=== PATIENT | female | born 1965 | race Two or more races ===

== ENCOUNTER 2018-04-14 10:52 | Emergency (ER) | payer BC ==
--- NOTE | 2018-04-14 13:32 | UC ---
Skin Complaint HPI - HPI Summary HPI Summary: Pt presents with a rash on right side torso, concerned for shingles. Pt states 3 days ago her skin was sensitive. States last night developed red, raised rash. + mild ttp, mild itching and burning. few small blisters. fatigue. no fever, chills. No other complaints. Not immunocompromised No h/o similar. Pt's with h/o shinlges - History of Current Complaint Chief Complaint: UCSkin Time Seen by Provider: 04/14/18 13:27 Stated Complaint: SKIN CONCERN Hx Obtained From: Patient Pain Intensity: 0 - Allergy/Home Medications Allergies/Adverse Reactions: Allergies Allergy/AdvReac Type Severity Reaction Status Date / Time gluten Allergy Headache Verified 04/14/18 11:19 shrimp Allergy Swelling Verified 04/14/18 11:19 Of Face,Lips,& Throat Sulfa (Sulfonamide Allergy Hives Verified 04/14/18 11:19 Antibiotics) PMH/Surg Hx/FS Hx/Imm Hx Previously Healthy: Yes - Surgical History Surgical History: None - Family History Known Family History: Positive: Other - with shingles, Non-Contributory - Social History Occupation: Employed Full-time Lives: With Family Alcohol Use: Occasionally Substance Use Type: None Smoking Status (MU): Former Smoker Review of Systems All Other Systems Reviewed And Are Negative: Yes Constitutional: Positive: Fatigue Skin: Positive: Rash Physical Exam - Summary Physical Exam Summary: Vital Signs Reviewed: Yes A+Ox3, no distress Eyes: Conjunctiva Clear ENT: Hearing grossly normal TM x 2, mmoist, uvula midline, no exudate, no erythema Neck: Positive: Supple Respiratory: Positive: No respiratory distress, No accessory muscle use Cardiovascular: well perfused Musculoskeletal Exam: MERA x 4 without difficulty Strength Intact, ROM Intact Neurological: Positive: Alert, + sensation throughout Psychological: Positive: Normal Response To Family Skin: Positive: right flank with red,raised vesicles band like - no drainage, mild tenderness. mild erythema base Triage Information Reviewed: Yes Vital Signs: Initial Vital Signs Temp 98.1 F 04/14/18 11:17 Pulse 62 04/14/18 11:17 Resp 14 04/14/18 11:17 BP 112/71 04/14/18 11:17 Pulse Ox 100 04/14/18 11:17 Course/Dx - Course Course Of Treatment: Presents to urgent care with painful rash on her right flank. Patient states her skin was tender without any lesions for 2 days. Patient states last night she developed rash. Patient several had shingles but states her has. Patient is not immunocompromised. Patient with right- sided bandlike rash T 12 dermatome approximately consistent with shingles. We' ll start patient on Valtrex as well as prednisone taper. Encourage Motrin Tylenol. Precautions given. Patient comfortable in agreement with plan. - Diagnoses Provider Diagnosis: Shingles Discharge - Sign-Out/Discharge Documenting (check all that apply): Patient Departure All imaging exams completed and their final reports reviewed: No Studies - Discharge Plan Condition: Stable Disposition: HOME Prescriptions: predniSONE TAB* [Deltasone 20 MG TAB*] 20 mg PO DAILY #13 tab ValACYclovir (*) [Valtrex 1 GM(*)] 1 gm PO TID #21 tab Patient Education Materials: Shingles (ED) Referrals: Cathryn Ellington [employer] [facility] [Primary Care Provider] - Additional Instructions: -Take prednisone EXACTLY as prescribed until gone -Take Valtrex (anti-viral medication) as prescribed - Okay to take Tylenol every 6 hours as needed - it is recommended you schedule a follow-up appointment with your doctor. - You should avoid contact with people receiving chemotherapy, women and infants until your lesions have resolved - Your lesions may continue to develop over the next 10 days - this is normal. They should not spread to other areas of your body - Billing Disposition and Condition Condition: STABLE Disposition: Home
[2018-04-14 13:42] VITALS: BP 110/70
== END 2018-04-14 13:46 | disposition home or self-care (01) ==
LOC: UCCORT 10:52
DX: B02.9 Zoster without complications (principal); Z88.2 Allergy status to sulfonamides; Z87.891 Personal history of nicotine dependence
CPT/HCPCS: 99212; G0463